=== PATIENT | female | born 1995 ===

== ENCOUNTER 2016-08-25 18:13 | Emergency (ER) | payer SELFPAY ==
--- NOTE | 2016-08-25 20:16 | C.PDOC ---
History Of Present Illness The patient, a 20 y/o female with history of severe acne, presents to the ED for evaluation of itching, burning, and swelling to facial skin which began a few days ago. Patient notes she has never been evaluated by a beater dumper. She denies fever, chills. Chief Complaint (Nursing): Allergic Reaction History Per: Patient History/Exam Limitations: no limitations Onset/Duration Of Symptoms: Days Current Symptoms Are (Timing): Still Present Possible Cause: Other (+history of acne ) Associated Symptoms: Itching Past Medical History Reviewed: Historical Data, Nursing Documentation, Vital Signs Vital Signs: Last Vital Signs Temp 98.8 F 08/25/16 20:20 Pulse 102 H 08/25/16 20:20 Resp 20 08/25/16 20:20 BP 107/68 08/25/16 20:20 Pulse Ox 98 08/25/16 22:01 - Medical History PMH: No Chronic Diseases Surgical History: No Surg Hx Family History: States: Unknown Family Hx - Social History Hx Alcohol Use: No Hx Substance Use: No Review Of Systems Except As Marked, All Systems Reviewed And Found Negative. Constitutional: Negative for: Fever, Chills Skin: Positive for: Other (facial itching, burning, and swelling) Physical Exam - Physical Exam Appears: Non-toxic, No Acute Distress Skin: Warm, Dry, Other (+extensive pustular facial acne ranging from forehead to submandibular region. no erythema ) Head: Atraumatic, Normacephalic Eye(s): bilateral: Normal Inspection Oral Mucosa: Moist, No Other (lesions ) Tongue: Normal Appearing Lips: Normal Appearing Gingiva: Normal Appearing Throat: Normal, No Erythema, No Exudate Neck: Normal ROM, Supple Lymphatic: Adenopathy (b/l submandibular ) Extremity: Normal ROM Neurological/Psych: Normal Speech, Normal Cognition Gait: Steady ED Course And Treatment O2 Sat by Pulse Oximetry: 98 (on RA) Pulse Ox Interpretation: Normal Medical Decision Making Medical Decision Making: Plan: * Doxycycline PO * Motrin PO * reassess and disposition Progress: Pt received Doxycycline PO and Motrin PO. On reassessment, pt is resting comfortably, showing no signs of distress, and notes improvement in her symptoms. Patient is stable for discharge and is advised to f/u with beater dumper within a timely manner for further evaluation. Disposition Counseled Patient/Family Regarding: Diagnosis, Need For Followup, Rx Given - Disposition Referrals: [facility] [Outside] [facility] [Outside] Disposition: AGAINST MEDICAL ADVICE Disposition Time: 20:14 Condition: STABLE Additional Instructions: Take medication as directed. Take ibuprofen for pain if needed. Follow up in medical clinic in a few days. Return to ER for a any worsening symptoms. Prescriptions: Doxycycline Hyclate 100 mg PO BID #20 capsule Instructions: Acne (ED) Forms: General Discharge Instructions - Clinical Impression Clinical Impression: Acne - Scribe Statement The provider has reviewed the documentation as recorded by the Scribe (Conchita Orourke) All medical record entries made by the Scribe were at my direction and personally dictated by me. I have reviewed the chart and agree that the record accurately reflects my personal performance of the history, physical exam, medical decision making, and the department course for this patient. I have also personally directed, reviewed, and agree with the discharge instructions and disposition.
[2016-08-25 20:48] VITALS: BP 107/68; PULSE 102; RESP 20; TEMP 98.8
[2016-08-25 21:58] VITALS: O2SAT 98
== END 2016-08-25 20:21 | disposition left against medical advice (07) ==
LOC: C.ER 18:13
DX: L70.9 Acne, unspecified (principal)